=== PATIENT | female | born 1995 | race Caucasian/White ===

== ENCOUNTER 2019-06-11 13:16 | Emergency (ER) | payer SELFPAY ==
[2019-06-11] MEDS ORDERED: Ibuprofen 800 MG TAB ONE (13:35)
== END 2019-06-11 14:05 | disposition home or self-care (01) ==
LOC: MADERS 13:16
DX: J02.9 Acute pharyngitis, unspecified (principal)
CPT/HCPCS: 87081; 87430; 99283

== ENCOUNTER 2022-04-27 18:27 | Emergency (ER) | payer SELFPAY ==
[~2022-04-27 18:27] MED LIST: Iopamidol 370 76% 100 ML VIAL ONE
[2022-04-27 19:18] LABS: #Basophils 0.1 thou/uL (0.0-0.2); #Eosinphils 0.1 thou/uL (0.0-0.7); #Lymphocytes 1.7 thou/uL (1.20-3.40); #Monocytes 0.5 thou/uL (0.11-0.59); #Neutrophils 5.8 thou/uL (1.40-6.50); %Basophils 0.9 % (0.0-1.0); %Lymphocytes 21.2 % (21.0-51.0); %Monocytes 5.6 % (0.0-10.0); %Neutrophils 71.3 % (42.0-75.0); Hemoglobin 13.2 g/dL (12.0-16.0); Mean Corpuscular HGB CONC 31.6 g/dL (32.0-36.0); Mean Corpuscular Hemoglobin 27.4 pg (27.0-31.0); Mean Corpuscular Volume 86.9 fL (78.0-98.0); Platelet Count 278 thou/uL (130-400); RBC Distribution Width 12.7 % (11.5-14.5); Red Blood Cell (RBC) Count 4.82 mill/uL (4.20-5.40); White Blood Cell (WBC) Count 8.1 thou/uL (4.8-10.8)
[2022-04-27 19:30] LABS: Bilirubin Negative (Negative); Blood, Urine Trace (Negative); Glucose, Urine (Dipstick) Negative (Negative); Ketone, Urine Trace mg/dL (Negative); Leukocyte Negative (Negative); Nitrite Negative (Negative); Pregnancy Test - Urine (BHCG) Negative (Negative); Pregu Control Background? CLEAR/WHITE (CLR/WHITE); Pregu Control Bar Appear? YES (CONTROL BAR); Protein, Urine (Dipstick) Negative (Neg-Trace); Specific Gravity 1.025 (1.002-1.036); Specific Gravity, Urine 1.025 (1.005-1.030)
[2022-04-27 19:32] LABS: ALT (SGPT) 19 U/L (8-55); AST (SGOT) 22 U/L (5-34); Albumin 3.8 g/dL (3.5-5.0); Alkaline Phosphatase 54 U/L (40-110); Anion Gap 12 mmol/L (10-20); BUN (Urea Nitrogen) 5 mg/dL (7.0-18.7); Bilirubin, Total 0.8 mg/dL (0.2-1.2); Calc. Creatinine Clearance 0 mL/min (70-130); Calcium 8.5 mg/dL (7.8-10.44); Carbon Dioxide 24 mmol/L (22-29); Chloride 108 mmol/L (98-107); Estimated GFR 123; Globulin 2.5 g/dL (2.4-3.5); Glucose 117 mg/dL (70-105); Potassium 3.4 mmol/L (3.5-5.1); Protein, Total 6.3 g/dL (6.0-8.3); Sodium 141 mmol/L (136-145)
[2022-04-27 19:38] LABS: Bacteria/HPF 1+ HPF (None Seen); Clarity Hazy (Clear); RBC/HPF 0-3 HPF (0-3); Squamous Epithelial 0-3 HPF (0-3); WBC/HPF 0-3 HPF (0-3)
[2022-04-27] MEDS ORDERED: Ketorolac Tromethamine 30 MG/ML VIAL ONE (21:33)
== END 2022-04-27 21:51 | disposition home or self-care (01) ==
LOC: MADERS 18:27
DX: R10.11 Right upper quadrant pain (principal)
CPT/HCPCS: 36415; 74177; 80053; 81003; 81015; 81025; 83690; 85025; 96374; J1885; Q9967

== ENCOUNTER 2023-07-05 19:02 | Emergency (ER) | payer OTHER, SELFPAY ==
[2023-07-05] MEDS ORDERED: Ketorolac Tromethamine 10 MG TAB ONE (20:03)
== END 2023-07-05 20:06 | disposition home or self-care (01) ==
LOC: MADERS 19:02
DX: J06.9 Acute upper respiratory infection, unspecified (principal); J02.9 Acute pharyngitis, unspecified
CPT/HCPCS: 87081; 87430; 99283

== ENCOUNTER 2025-06-29 12:16 | Emergency (ER) | payer SELFPAY | END 2025-06-29 12:50 | disposition home or self-care (01) | LOC: MADERS 12:16 | DX: B07.9 Viral wart, unspecified (principal) | CPT/HCPCS: 99282 ==